=== PATIENT | female | born 1995 | race African-American/Black ===

== ENCOUNTER 2020-04-02 16:51 | Emergency (ER) | payer SELFPAY ==
[2020-04-02 17:29] VITALS: BP 128/93; PULSE 120; RESP 18; TEMP 37.2; O2SAT 100
--- NOTE | 2020-04-02 20:24 | ED.GENADULT ---
HPI - General Adult General Chief complaint: Unspecified Stated complaint: if i breathe in too hard it hurts my ribs Time Seen by Provider: 04/02/20 17:50 Source: patient Mode of arrival: ambulatory Limitations: no limitations History of Present Illness HPI narrative: Patient presents with CC of pain to the right lower rib area that began after assisting a patient with showering. She denies fall or direct injury. She reports the pain worsens with movement or deep breathing. She denies contractions, SOB, nausea, vomiting, urinary symptoms or vaginal bleeding. She can not recall the name of her OBGYN but states she has an appointment with her next week and she is located in [place]. She has not taken anything for her symptoms prior to driving to the ER. She reports she is without any complications with the prior 2 pregnancies. Related Data Home Medications Medication Instructions Recorded Confirmed No Home Medications 04/02/20 04/02/20 Allergies Allergy/AdvReac Type Severity Reaction Status Date / Time Penicillins Allergy Swelling Verified 04/02/20 17:34 of Lip/Tongue/Throat zolpidem [From Ambien] AdvReac Swelling Verified 04/02/20 17:34 of Lip/Tongue/Throat Review of Systems Constitutional: Constitutional: Denies chills, Denies fatigue, Denies fever(s) and Denies weakness Eyes: Eyes: Denies change in vision ENT: Denies dysphagia, Denies vertigo, Denies dizziness, Denies epistaxis, Denies nasal congestion and Denies sore throat Cardiovascular: Cardiovascular: Denies chest pain, Denies rapid heart rate, Denies radiating jaw, neck or arm pain and Denies slow heart rate Respiratory: Respiratory: Denies chest congestion, Denies cough, Denies dyspnea and Denies wheezing Gastrointestinal: Gastrointestinal: Denies diarrhea, Denies nausea and Denies vomiting Genitourinary: Genitourinary: Denies abnormal vaginal bleeding, Denies hematuria, Denies nocturia, Denies genital lesions, Denies dysuria, Denies pelvic pain, Denies flank pain, Denies urinary incontinence and Denies vaginal discharge Musculoskeletal: Comments: right rib muscle spasming Neurologic: Denies vertigo, Denies dizziness, Denies syncope, Denies headache(s), Denies numbness and Denies weakness Exam Const: General: no acute distress (appears uncomfortable splinting right lower rib with pillow) and alert Orientation/consciousness: patient oriented x3 HENMT: Head: normal to inspection Ears: TM's normal bilaterally and EAC's normal Mouth: Yes Normal oral and palatal mucosa present and Yes lip normal Eyes: Pupils: Equal, round and reactive pupils present EOM: EOMs intact bilaterally Neck: Neck: normal visual inspection Chest: Chest palpation & inspection: normal inspection of the chest Other: not tender to palpation of ribs, patient reports pain to deeper lower rib on right side Resp: Effort & Inspection: no retractions and not tachypneic Auscultation: clear to auscultation bilaterally, no crackles, no rales, no rhonchi, no wheezes, breath sounds present and lung sounds not diminished Cardio: Rate: regular rate Rhythm: regular rhythm GI: GI Palp: Yes Soft to palpation Auscultation: normal bowel sounds Other: uterus palpable just under umbilicus : General: Yes no CVA tenderness Back/Spine/Pelvis: Back: no CVA tenderness Skin: General skin exam: normal color Neuro: General: patient oriented x3, moves all extremities, no meningeal signs and no focal motor deficits Course Vital Signs Vital signs: Vital Signs Temperature 98.9 F 04/02/20 17:29 Pulse Rate 120 04/02/20 17:29 Respiratory Rate 18 04/02/20 17:29 Blood Pressure 128/93 04/02/20 17:29 Pulse Oximetry 100 04/02/20 17:29 Temperature 98.4 F 04/02/20 21:18 Pulse Rate 81 04/02/20 21:18 Respiratory Rate 18 04/02/20 21:18 Blood Pressure 97/68 L 04/02/20 21:18 Pulse Oximetry 100 04/02/20 21:18 Medical Decision Making [facility] Narrat
[2020-04-02 21:18] VITALS: BP 97/68; PULSE 81; RESP 18; TEMP 36.9; O2SAT 100
== END 2020-04-02 21:19 | disposition home or self-care (01) ==
PROVIDERS: Emergency Provider Emergency Medicine
DX: O9A.212 Injury, poisoning and certain other consequences of external causes complicating pregnancy, second trimester (principal); S23.41XA Sprain of ribs, initial encounter; X58.XXXA Exposure to other specified factors, initial encounter; Z3A.19 19 weeks gestation of pregnancy
CPT/HCPCS: 96365; 99284; J0131